=== PATIENT | male | born 1985 | race African-American/Black ===

== ENCOUNTER 2022-06-14 09:34 | Emergency (ER) | payer BC, SELFPAY ==
--- NOTE | ~2022-06-14 | XR_ITS ---
EXAMINATION: XR chest 1V portable 06/14/2022 10:15 INDICATION: Cough for 4 weeks PROCEDURE: AP portable chest COMPARISON: No prior studies for comparison. FINDINGS: The lungs are clear. The cardiomediastinal silhouette is within normal limits. There are no pleural effusions. There is no pneumothorax suspected. IMPRESSION: 1: NO ACUTE CARDIOPULMONARY DISEASE. Reviewed, dictated and finalized at location A. LATORY AFFAIRS DIRECTOR
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
[2022-06-14 09:49] VITALS: BP 147/107; PULSE 92; RESP 16; TEMP 36.6; O2SAT 97
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
[2022-06-14 10:53] LABS: Influenza A QL RT-PCR Negative (Negative); Influenza B QL RT-PCR Negative (Negative); SARS-CoV-2 RNA PCR Negative
== END 2022-06-14 11:24 | disposition home or self-care (01) ==
PROVIDERS: Physician Assistant; Emergency Provider Emergency Medicine
DX: J40 Bronchitis, not specified as acute or chronic (principal); S60.221A Contusion of right hand, initial encounter; Z20.822 Contact with and (suspected) exposure to COVID-19; W22.09XA Striking against other stationary object, initial encounter
CPT/HCPCS: 71045; 73130; 87636; 99284

== ENCOUNTER 2023-11-30 17:39 | Emergency (ER) | payer SELFPAY ==
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
[2023-11-30 17:41] VITALS: BP 134/63; PULSE 98; RESP 16; TEMP 36.8; O2SAT 100
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
[2023-11-30] MEDS: HYDROcodone/acetaminophen (*CRX) 5-325 MG TABLET 1 TAB PO (18:05)
[2023-11-30] MEDS: KETOROLAC 30 MG/ML VIAL (*BKC) IM (18:05)
== END 2023-11-30 19:11 | disposition home or self-care (01) ==
PROVIDERS: Emergency Provider Physician Assistant; PCP Family Medicine
DX: S62.337A Displaced fracture of neck of fifth metacarpal bone, left hand, initial encounter for closed fracture (principal); F17.210 Nicotine dependence, cigarettes, uncomplicated; W21.89XA Striking against or struck by other sports equipment, initial encounter
CPT/HCPCS: 29125; 73130; 96372; 99284; A9270; J1885

== ENCOUNTER 2024-02-19 13:41 | Emergency (ER) | payer MEDICAID, SELFPAY ==
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
[2024-02-19 13:36] VITALS: BP 120/84; PULSE 86; RESP 16; TEMP 36.8; O2SAT 98
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
[2024-02-19] MEDS: HYDROcodone/acetaminophen (*CRX) 5-325 MG TABLET 1 TAB PO (14:05)
[2024-02-19] MEDS: IBUPROFEN 400 MG TABLET 800 MG PO (14:08)
[2024-02-19] MEDS: methocarbamoL 500 MG TABLET 1500 MG PO (14:10)
[2024-02-19 15:26] VITALS: BP 126/76; PULSE 87; RESP 18; TEMP 36.4; O2SAT 98
--- NOTE | 2024-02-19 16:06 | PC.NURSE ---
patient was provided a cab voucher to get home because they stated they could not find a ride home and did not have money for a cab. patient requested to sit outside and they were educated that they need to stay near by because when the cab arrives they will be unable to wait for them for an extended period of time. patient ended up leaving the ER before the cab arrived and when the cab showed up the patient was no where in the waiting room, bathrooms, or outside. ED charge nurse was notified.
== END 2024-02-19 15:29 | disposition home or self-care (01) ==
PROVIDERS: Emergency Provider Student in an Organized Health Care Education/Training Program
DX: S72.411A Displaced unspecified condyle fracture of lower end of right femur, initial encounter for closed fracture (principal); F17.200 Nicotine dependence, unspecified, uncomplicated; M16.0 Bilateral primary osteoarthritis of hip; V03.10XA Pedestrian on foot injured in collision with car, pick-up truck or van in traffic accident, initial encounter
CPT/HCPCS: 73502; 73562; 99284; A9270

== ENCOUNTER 2025-03-13 08:06 | Emergency (ER) | payer BC, SELFPAY ==
--- NOTE | ~2025-03-13 | XR_ITS ---
EXAMINATION: XR foot RT min 3V DATE: 03/13/2025 08:44 INDICATION: Right great toe pain TECHNIQUE: Dorsoplantar, two oblique and lateral views of the right foot were obtained. COMPARISON: None. FINDINGS: Nondisplaced oblique extra articular fracture extending from the medial margin of the distal head of the first proximal phalanx to the lateral margin at the proximal metaphyseal region. Alignment remains essentially anatomic. No other fractures identified. Joint spaces are normal. Soft tissue swelling about the great toe. IMPRESSION: 1. Nondisplaced extra articular fracture at the right first proximal phalanx. Reviewed, dictated and finalized at location A.
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
[2025-03-13 08:13] VITALS: BP 110/72; PULSE 79; RESP 20; TEMP 36.1; O2SAT 98
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
== END 2025-03-13 10:42 | disposition home or self-care (01) ==
PROVIDERS: Emergency Provider Emergency Medicine
DX: S92.414A Nondisplaced fracture of proximal phalanx of right great toe, initial encounter for closed fracture (principal); F17.210 Nicotine dependence, cigarettes, uncomplicated; X58.XXXA Exposure to other specified factors, initial encounter
CPT/HCPCS: 73630; 99284